=== PATIENT | male | born 1995 | race Caucasian/White ===

== ENCOUNTER → 2018-04-25 | Outpatient (CLI) | payer BC ==
--- NOTE | 2018-04-25 15:57 | Diagnostic Imaging Report ---
Indication: Foot pain Comparison: None Findings: 3 views of the left foot were obtained. There is an acute nondisplaced transverse fracture of the base of the fifth metatarsal. Remainder the exam is unremarkable. IMPRESSION: Acute fracture base of the fifth metatarsal
== END | disposition home or self-care (01) ==
LOC: RAD 15:02
DX: S92.355A Nondisplaced fracture of fifth metatarsal bone, left foot, initial encounter for closed fracture (principal)